=== PATIENT | female | born 1975 | race Caucasian/White ===

== ENCOUNTER 2023-08-18 13:40 | Emergency (ER) | payer MEDICAID ==
[~2023-08-18] VITALS: Ht 162.6 cm; Wt 138.3 kg
[2023-08-18 14:18] VITALS: BP 146/79; PULSE 66; RESP 16; TEMP 97.3; O2SAT 96
[2023-08-18] MEDS: KETOROLAC 30 MG/ML VIAL IM ONE (15:16)
[2023-08-18] MEDS ORDERED: IBUP-2213 PO (15:41)
[2023-08-18] MEDS ORDERED: CEPH-588 PO (15:41)
[2023-08-18 15:58] VITALS: BP 146/79; PULSE 66; RESP 16; TEMP 97.3; O2SAT 96
== END 2023-08-18 15:59 | disposition home or self-care (01) ==
LOC: MED 13:40
DX: L03.116 Cellulitis of left lower limb (principal); M77.52 Other enthesopathy of left foot and ankle; Z79.1 Long term (current) use of non-steroidal anti-inflammatories (NSAID); Z79.2 Long term (current) use of antibiotics; Z91.040 Latex allergy status
CPT/HCPCS: 73610; 96372; 99283; J1885